=== PATIENT | female | born 1975 | race Caucasian/White ===

== ENCOUNTER 2016-06-01 19:40 | Emergency (ER) ==
[2016-06-01 19:53] VITALS: BP 129/88; TEMP 97.7; BMI 19.7
[2016-06-01] MEDS ORDERED: SODIUM CHLORIDE 1,000 ML IV STA (20:07)
[2016-06-01] MEDS ORDERED: CLEOCIN IV STA (20:08)
[2016-06-01] MEDS ORDERED: SODIUM CHLORIDE IV STA (20:08)
[2016-06-01] MEDS ORDERED: ZOSYN 4.5 GM 4.5 GM in SODIUM CHLORIDE 100 ML IV STA (20:09)
[2016-06-01] MEDS ORDERED: ZOFRAN 4 MG/2 ML IVP STA (20:09)
[2016-06-01] MEDS ORDERED: DILAUDID 1 MG/ML SYRINGE IVP STA ×2 (20:09→20:49)
[2016-06-01] MEDS ORDERED: DECADRON 4 MG/ML SDV IVP STA (20:09)
[2016-06-01 20:24] LABS: BASOPHILS % (AUTO) 0.4 % (0.0-3.0); EOSINOPHILS % (AUTO) 0.5 % (0.0-7.0); HEMATOCRIT 39.3 % (37.0-47.0); HEMOGLOBIN 13.7 g/dl (12.0-16.0); IMMATURE GRANULOCYTE % (AUTO) 0.4 % (0.0-5.0); LYMPHOCYTES # (AUTO) 1.2 K/uL (0.60-3.4); LYMPHOCYTES % (AUTO) 15.7 (10.0-50.0); MEAN CORPUSCULAR HEMOGLOBIN 31.1 pg (27.0-31.0); MEAN CORPUSCULAR HGB CONC 34.9 (31.8-35.4); MEAN CORPUSCULAR VOLUME 89.1 fl (81.0-99.0); MONOCYTES # (AUTO) 0.7 K/uL (0.4-2.0); MONOCYTES % (AUTO) 8.6 (0-10); NEUTROPHILS # (AUTO) 5.6 K/ul (2.0-6.9); NEUTROPHILS % (AUTO) 74.4; PLATELET COUNT 217 10^3/uL (140-440); RED BLOOD COUNT 4.41 10^6/ul (4.20-5.40); WHITE BLOOD COUNT 7.56 K/ul (4.6-10.2)
[2016-06-01] MEDS ORDERED: CLEOCIN ONE (20:25)
[2016-06-01 20:43] LABS: ALBUMIN 3.9 g/dL (3.4-5.0); ALBUMIN/GLOBULIN RATIO 1.3; ANION GAP 13.2; BILIRUBIN,TOTAL 0.31 mg/dL (0.00-1.20); BUN/CREATININE RATIO 17.1; CALCIUM 9.3 mg/dL (8.2-10.2); CREATININE 0.76 mg/dL (0.60-1.30); POTASSIUM 3.2 mmol/L (3.5-5.10); TOTAL PROTEIN 6.9 g/dL (6.4-8.2)
[2016-06-01 20:44] LABS: SERUM PREGNANCY INTERNAL QC INTERNAL QC VALID
[2016-06-01] MEDS ORDERED: TORADOL IVP STA (20:50)
--- NOTE | 2016-06-01 21:33 | CT ---
EXAM: CT sinuses/facial bones without contrast HISTORY: Dental pain and swelling. Patient taking amoxicillin from dentist with worsening toothach e. COMPARISON: None TECHNIQUE: Serial axial images of the facial bones/sinuses were obtained without IV contrast. Thes e were viewed in coronal, sagittal and axial planes. FINDINGS: The mandible demonstrates no lucency or abscess. The maxilla demonstrates dental hardwar e in the right upper maxilla, limiting evaluation. No focal lucency is noted in the maxilla to sugg est abscess. There is soft tissue swelling adjacent to the right mandible with no focal fluid colle ction identified. There is no subcutaneous gas identified. There are scattered right greater than left lymph nodes. Limited views of the intracranial contents are unremarkable. The orbital globes retrobulbar structures are normal. The paranasal sinuses are clear. IMPRESSION: 1. Subcutaneous stranding and inflammatory changes in the region of the right mandible with no gregorio cent lucency within the mandible or focal fluid collection. Findings are suggestive of cellulitis/i nflammation. 2. Scattered lymph nodes are likely reactive.
[2016-06-01] MEDS ORDERED: ZOSYN 4.5 GM 4.5 GM in SODIUM CHLORIDE 100 ML IV ONE (22:13)
--- NOTE | 2016-06-01 22:35 | ED.PDOC ---
General ED Provider: Dr. MARIE ESPAÑA-ER Chief Complaint: Tooth Problem Stated Complaint: my tooth hurts where i had dental work--it swelling and painful Time Seen by Physician: 19:45 Mode of Arrival: Walk-In Information Source: Patient, Family Exam Limitations: No limitations Primary Care Provider: DANTE VILLEGAS Nursing and Triage Documentation Reviewed and Agree: Yes EENT Complaint Exam - Dental/Oral Complaint/Exam Mechanism of Injury: No known trauma Onset/Duration: 3 days Symptoms Are: Still present Timing: Constant Initial Severity: Mild Current Severity: Moderate Location: right lower dental Character: Reports: Dull, Aching, Throbbing Aggravating: Reports: Chewing Alleviating: Reports: None Associated Signs and Symptoms: Reports: Swelling. Denies: Discharge, Fever, Foul odor, Foul taste in mouth Related History: Reports: Similar episode Cardiac Risk Factors: Reports: None Dental/Oral Surgical History: Reports: None Tooth Findings: Present: Percussion tenderness, Gross decay, Abcess, Cellulitis Cervical Lymphadenopathy Present: No Facial Swelling Present: Yes Bleeding Present: No Oropharynx Findings: Absent: Clots, Active bleeding Septal Hematoma: No Foreign Body Present: No Dysphagia Present: No Drooling Present: No Asymmetrical Tonsillar Swelling Present: No Uvula Midline: Yes Geri-tonsillar Fluctuence: No Trismus Present: No Palatal Petechiae Present: No Scarlatinaform Rash Present: No Differential Diagnoses: Dental Abcess Review of Systems - Review Of Systems Constitutional: Reports: No symptoms Eyes: Reports: No symptoms Ears, Nose, Mouth, Throat: Reports: Mouth pain, Mouth swelling Respiratory: Reports: No symptoms Cardiac: Reports: No symptoms GI: Reports: No symptoms : Reports: No symptoms Musculoskeletal: Reports: No symptoms Skin: Reports: No symptoms Neurological: Reports: No symptoms Endocrine: Reports: No symptoms Hematologic/Lymphatic: Reports: No symptoms All Other Systems: Reviewed and Negative Past Medical History - Past Medical History Endocrine: Reports: Unknown Cardiovascular: Reports: Unknown Respiratory: Reports: Unknown Hematological: Reports: Unknown Gastrointestinal: Reports: Unknown Genitourinary: Reports: Unknown Neuro/Psych: Reports: Unknown Musculoskeletal: Reports: Unknown Cancer: Reports: Unknown Last Menstrual Period: 2 weeks - Surgical History General Surgical History: Reports: Unknown - Family History Family History: Reports: Unknown - Social History Smoking Status: Never smoker Hx Substance Use: No Alcohol Screening: Occasionally Lives: With family - Immunizations Tetanus Shot up to Date: Yes Physical Exam - Physical Exam Appearance: Well-appearing, No pain distress, Well-nourished Pain Distress: Moderate Eyes: TREVOR, EOMI, Conjunctiva clear ENT: Ears normal, Nose normal Respiratory: Airway patent, Breath sounds clear, Breath sounds equal, Respirations nonlabored Cardiovascular: RRR, Pulses normal, No rub, No murmur GI/: Soft, Nontender, No masses, Bowel sounds normal, No Organomegaly Musculoskeletal: Normal strength, ROM intact, No edema, No calf tenderness Skin: Warm, Dry, Normal color Neurological: Sensation intact Psychiatric: Affect appropriate, Mood appropriate Re-Evaluation - Re-Evaluation Time of Re-Evaluation: 22:38 Status: Improved Vital Signs Stable: Yes Pain Level: 1 Appearance: NAD Lungs: Clear Skin: Warm and Dry Neuro: Alert and Oriented X3 CV: RRR Critical Care Note - Critical Care Note Total Time (mins): 0 Course - Course Hematology/Chemistry: 06/01/16 20:15 06/01/16 20:15 Orders, Labs, Meds: Lab Review 06/01/16 20:15 WBC 7.56 RBC 4.41 Hgb 13.7 Hct 39.3 MCV 89.1 MCH 31.1 H MCHC 34.9 RDW Coeff of Lobo 11.8 Plt Count 217 Immature Gran % (Auto) 0.4 Neut % (Auto) 74.4 Lymph % (Auto) 15.7 [place] % (Auto) 8.6 Eos % (Auto) 0.5 Baso % (Auto) 0.4 Immature Gran # (Auto) 0.0 Neut # 5.6 Lymph # 1.2 [place] # 0.7 Eos # 0.0 Baso # 0.0 Sodium 140 Potassium 3.2 L Chloride 105 Carbon Dioxide 25 Anion Gap 13.2 BUN 13 Creatinine 0.76 Estimated GFR (MDRD) 84.00 BUN/Creatinine Ratio 17.10 Glucose 103 Calcium 9.3 Total Bilirubin 0.31 AST 30 ALT 27 Alkaline Phosphatase 51 Total Protein 6.9 Albumin 3.9 Globulin 3.0 Albumin/Globulin Ratio 1.30 Serum , Qual Negative Orders Category Date Time Status ED IV/MEDIPORT/POWERPORT .ONCE EMERGENCY 06/01/16 20:07 Active BLOOD CULTURE Stat LAB 06/01/16 20:15 Received CBC W/ AUTO DIFF Stat LAB 06/01/16 20:15 Completed COMPREHENSIVE METABOLIC PANEL Stat LAB 06/01/16 20:15 Completed SERUM Stat LAB 06/01/16 20:15 Completed 0.9 % Sodium Chloride [Saline Flush] MEDS 06/01/16 20:07 Ordered 1 syr IVF PRN PRN Clindamycin Phosphate Inj [Cleocin] MEDS 06/01/16 20:25 Discontinued 300 mg .ROUTE .STK-MED ONE Clindamycin Phosphate Inj [Cleocin] 900 mg MEDS 06/01/16 20:08 Discontinued 0.9 % Sodium Chloride [Sodium Chloride] 100 ml IV ONCE Dexamethasone 4 mg/ml Inj [Decadron 4 mg/ml Sdv] MEDS 06/01/16 20:09 Discontinued 4 mg IVP ONCE STA Hydromorphone HCl [Dilaudid 1 mg/ml Syringe] MEDS 06/01/16 20:09 Discontinued 1 mg IVP ONCE STA Hydromorphone HCl [Dilaudid 1 mg/ml Syringe] MEDS 06/01/16 20:49 Discontinued 1 mg IVP ONCE STA Ketorolac Tromethamine [Toradol] MEDS 06/01/16 20:50 Discontinued 30 mg IVP ONCE STA Ondansetron HCl/Pf [Zofran 4 mg/2 ml] MEDS 06/01/16 20:09 Discontinued 4 mg IVP ONCE STA Piperacillin Sodium/Tazobactam [Zosyn 4.5 gm] 4.5 gm MEDS 06/01/16 20:09 Discontinued 0.9 % Sodium Chloride [Sodium Chloride] 100 ml IV ONCE Sodium Chloride 0.9% [Sodium Chloride] 1,000 ml MEDS 06/01/16 20:07 Active IV 100 mls/hr CT MAXILLOFACIAL W/O CONTRAST Stat RADS 06/01/16 20:08 Completed Medications Generic Name Dose Route Start Last Admin Trade Name Freq PRN Reason Stop Dose Admin Sodium Chloride 1,000 mls @ 100 mls/hr 06/01/16 20:07 06/01/16 20:23 Sodium Chloride IV 06/02/16 06:06 100 mls/hr .Q10H STA Administration Sodium Chloride 1 syr 06/01/16 20:07 06/01/16 20:33 Saline Flush IVF 1 syr PRN PRN Administration To flush IV Discontinued Medications Generic Name Dose Route Start Last Admin Trade Name Freq PRN Reason Stop Dose Admin Dexamethasone Sodium Phosphate 4 mg 06/01/16 20:09 06/01/16 20:33 Decadron 4 Mg/Ml Sdv IVP 06/01/16 20:10 4 mg ONCE STA Administration Hydromorphone HCl 1 mg 06/01/16 20:09 06/01/16 20:29 Dilaudid 1 Mg/Ml Syringe IVP 06/01/16 20:10 1 mg ONCE STA Administration Hydromorphone HCl 1 mg 06/01/16 20:49 06/01/16 22:12 Dilaudid 1 Mg/Ml Syringe IVP 06/01/16 20:50 1 mg ONCE STA Administration Clindamycin Phosphate 900 mg/ 106 mls @ 100 mls/hr 06/01/16 20:08 06/01/16 20 :40 Sodium Chloride IV 06/01/16 21:11 100 mls/hr ONCE STA Administration Piperacillin Sod/Tazobactam 100 mls @ 100 mls/hr 06/01/16 20:09 06/01/16 22: 13 Sod 4.5 gm/ Sodium Chloride IV 06/01/16 21:08 100 mls/hr ONCE STA Administration Ketorolac Tromethamine 30 mg 06/01/16 20:50 06/01/16 21:01 Toradol IVP 06/01/16 20:51 30 mg ONCE STA Administration Ondansetron HCl 4 mg 06/01/16 20:09 06/01/16 20:27 Zofran 4 Mg/2 Ml IVP 06/01/16 20:10 4 mg ONCE STA Administration Vital Signs: Temp Pulse Resp BP Pulse Ox 06/01/16 19:42 97.7 F 99 H 20 129/88 98 Departure - Departure Time of Disposition: 22:39 Disposition: HOME SELF-CARE Discharge Problem: Dental abscess Instructions: Dental Abscess (ED) Condition: Good Pt referred to PMD for follow-up: Yes Additional Instructions: clindamycin 150mg tid x 7 days ---toradol 10mg qid prn pain #16--f/u with dentist tomorrow Allergies/Adverse Reactions: Allergies No Known Allergies Allergy (Unverified 06/01/16 19:52) Home Medications: Ambulatory Orders Amoxicillin 500 mg PO Q8HR 06/01/16 Hydrocodone/Acetaminophen [Hydrocodon-Acetaminophen 5-325] 1 tab PO DIRECTED PRN 06/01/16 Metronidazole [Flagyl] 500 mg PO Q8HR 06/01/16 Disposition Discussed With: Patient, Family
== END 2016-06-01 23:25 | disposition home or self-care (01) ==
LOC: ED 19:40
DX: K04.7 Periapical abscess without sinus (principal)
CPT/HCPCS: 36415; 80053; 84703; 85025; 87040; 96365; 96367; 96375; 96376; 99283